=== PATIENT | male | born 1960 | race Caucasian/White ===

== ENCOUNTER 2017-05-25 22:37 | Inpatient (IN) | payer MEDICAID ==
[2017-05-25 23:53] LABS: % BASOPHILS 0.3 % (0.0-2.0); % EOSINOPHILS 1.9 % (0.0-5.0); % LYMPHOCYTES 27.6 % (20.0-50.0); % MONOCYTES 8.1 % (2.0-10.0); % NEUTROPHILS 62.1 % (40.0-80.0); HEMATOCRIT 31.8 % (41.0-60); HEMOGLOBIN 10.3 gm/dL (12-16); MEAN CELL VOLUME 76.1 fl (80-99); MEAN CORPUSCULAR HEMOGLOBIN 24.7 pg (26.0-30.0); MEAN CORPUSCULAR HGB CONC 32.5 pg (28.0-36.0); MEAN PLATELET VOLUME 8.4 fl; NEUTROPHILE ABSOLUTE 4.3 Th/cmm (1.8-8.0); PLATELET COUNT 305 Th/cmm (150-400); RED BLOOD COUNT 4.18 Mil/cmm (4.30-5.70); RED CELL DISTRIBUTION WIDTH 15.7 % (11.5-20.0); WHITE BLOOD COUNT 6.9 Th/cmm (4.8-10.8)
[2017-05-26 00:03] LABS: ALB/GLOB RATIO 1.1 (1.0-1.8); ALKALINE PHOSPHATASE 79 U/L (34-104); ANION GAP 7.4 (7.0-16.0); BILIRUBIN,TOTAL 0.2 mg/dL (0.3-1.0); BUN - UREA NITROGEN 17 mg/dL (7-25); CALCIUM SERUM 8.7 mg/dL (8.6-10.3); CARBON DIOXIDE 27.4 mEq/L (21.0-31.0); CHLORIDE 98 mEq/L (98-107); CREATININE - SERUM 0.5 mg/dL (0.7-1.3); GLUCOSE 108 mg/dL (70-105); MAGNESIUM 1.7 mg/dL (1.9-2.7); POTASSIUM SERUM 3.8 mEq/L (3.5-5.1); SGOT 22 U/L (13-39); SGPT/ALT 20 U/L (7-52); SODIUM SERUM 129 mEq/L (136-145)
[2017-05-26] MEDS ORDERED: Sodium Chloride 0.9% 1,000 ML IV SCH ×2 (00:15→02:07)
--- NOTE | 2017-05-26 00:35 | ED Physician Chart ---
ED Chief Complaint/HPI - Patient Information Date Seen:: 05/26/17 Time Seen:: 00:22 Chief Complaint:: sob Allergies:: Allergies Allergy/AdvReac Type Severity Reaction Status Date / Time No Known Allergies Allergy Verified 05/25/17 22:51 Vitals:: Vital Signs - 8 hr 05/25/17 22:40 Temp 98.1 F HR 92 RR 18 BP 107/66 O2 Sat % 99 Family Medical History - Family Member Mother History Unknown: Yes Ethnicity: Non- ED Labs/Radiology/EKG Results - Lab Results Results: Laboratory Tests 05/25/17 05/25/17 23:35 23:35 WBC 6.9 RBC 4.18 L Hgb 10.3 L Hct 31.8 L MCV 76.1 L MCH 24.7 L MCHC Differential 32.5 RDW 15.7 Plt Count 305 MPV 8.4 Neutrophils % 62.1 Lymphocytes % 27.6 Monocytes % 8.1 Eosinophils % 1.9 Basophils % 0.3 Sodium 129 L Potassium 3.8 Chloride 98 Carbon Dioxide 27.4 Anion Gap 7.4 BUN 17 Creatinine 0.5 L Est GFR ( Amer) > 60.0 Est GFR (Non-Af Amer) > 60.0 BUN/Creatinine Ratio 34.0 Glucose 108 H Calcium 8.7 Magnesium 1.7 L Total Bilirubin 0.2 L AST 22 ALT 20 Alkaline Phosphatase 79 Total Protein 6.7 Albumin 3.5 L Globulin 3.2 Albumin/Globulin Ratio 1.1 ED Septic Shock - <6hrs of presentation: Vital Signs: Vital Signs - 8 hr 05/25/17 22:40 Temp 98.1 F HR 92 RR 18 BP 107/66 O2 Sat % 99
--- NOTE | 2017-05-26 05:03 | ER Physician Documentation ---
DATE OF SERVICE: A 56-year-old male patient came from [facility]. The patient is mentally retarded and his G-tube was pulled out or came out accidentally. It was an 18-Maori G-tube. Hence, the patient was referred here to our Emergency Room for placement of the G-tube, but since the tube was pulled out, it was difficult to pull the G-tube in. There is no hole that could be seen. The nurse witnessed it and hence the patient needs to be admitted in the hospital. HISTORY OF PRESENT ILLNESS: Once again, the patient is mentally retarded. He is DNR. He has selective treatment. He has a G-tube. He is mentally retarded, mentally challenged. He has hypothyroidism, diaphragmatic hernia, GERD, dysphagia, mental retardation, anemia, epilepsy, diabetes mellitus. All these conditions are there. G-tube came out, hence he is admitted. No other heart problems or lung problems. He has mental retardation, mentally challenged. He just looks and gazes. He does not talk, he does not answer. History of present illness and other medical conditions could not be assessed because he does not talk. He came from this place. PAST MEDICAL HISTORY: Essentially same as mentioned above. PERSONAL HISTORY: Benign and negative except for the ones mentioned above. PHYSICAL EXAMINATION: GENERAL: The patient is gazing at me and he does not speak anything. He has no apparent complaints. He has NG tube area that is covered up with a gauze. There is no Ruff catheter. He has a diaper in place. HEENT: No meningeal signs are seen. CHEST: Clear. No rales, rhonchi, or bronchial breathing. No evidence of any decreased air entry at the lungs. HEART: Heart sounds appear to be normal. PMI is not seen or felt. S1 and S2 are normal. Fourth heart sound is heard. ABDOMEN: Soft, benign, and negative. EXTREMITIES: Contractures are seen. The patient could not walk. He is in the bedridden status. ASSESSMENT AND PLAN: 1. In conclusion, the reason why the patient came is his 18-Maori G-tube was pulled out accidentally. 2. The patient is mentally challenged, mentally retarded. The patient is a DNR status with selective treatment. 3. Hypothyroidism, diaphragmatic hernia, gastroesophageal reflux disease, dysphagia, mental retardation, anemia, epilepsy, diabetes mellitus. The patient will be admitted. ____ his admitting doctor is Dr. Nelson who advised that the patient should be sent to the psych or whichever unit he has given the order, will be sent over there. Pain scale is 0-10 out of 10. JOB# [id number]
[2017-05-26 05:50] VITALS: BP 117/70
--- NOTE | 2017-05-26 08:58 | History and Physical ---
History of Present Illness - HPI Chief Complaint: G-tube was pulled out HPI: This is a patient that I follow at a SNF, I received a call that patient has pulled off his G-tube, order to transferred patient to ER was given. Vital Signs: Last Vital Signs Temp 98.0 F 05/26/17 02:44 Pulse 90 05/26/17 02:44 Resp 17 05/26/17 03:00 BP 117/70 05/26/17 05:50 Pulse Ox 100 05/26/17 02:44 Past Medical History Cardiovascular: Report: No Pertinent Hx Pulmonary: Report: No Pertinent Hx RN SCHOOL: Report: Other (Mentally retarded, epilepsy) GI: Report: GERD, Other (Dysphagia, PEG use) Psych: Report: Other (Mentally retarded) Musculoskeletal: Report: Muscle Atrophy, Stiffness, Other (Non ambulatory) Rheumatologic: Report: No pertinent Hx Infectious Disease: Report: No Pertinent Hx Renal/: Report: No Pertinent Hx Endocrine: Report: Diabetes, Hyperthyroidism (PEG placement), Hypothyroidism Family Medical History - Family Member Mother History Unknown: Yes Ethnicity: Non- Social History Smoke: No Alcohol: None Drugs: None Lives: Residential Domestic Violence: Negative - Medications Home Medications: Home Medication Medication Instructions Recorded Type Acetaminophen [Tylenol] 650 mg GT Q4HR PRN 05/25/17 History Bisacodyl [Dulcolax 10 Mg Supp] 10 mg RC DAILY PRN 05/25/17 History Levetiracetam [Keppra] 500 mg GT BID 05/25/17 History Levothyroxine [Synthroid] 0.125 mg GT QDAC 05/25/17 History Omeprazole 20 mg GT QDAC 05/25/17 History Zonisamide [Zonegran] 100 mg GT HS 05/25/17 History - Allergies Allergies/Adverse Reactions: Allergies Allergy/AdvReac Type Severity Reaction Status Date / Time No Known Allergies Allergy Verified 05/25/17 22:51 Review of Systems - Review of Systems Constitutional: Report: No Significant Eyes: Report: No Significant ENT: Report: No Significant Respiratory: Report: No Significant Cardiovascular: Report: No Significant Gastrointestinal: Report: Other (Dysphagia) Genitourinary: Report: No Significant Musculoskeletal: Report: Other (Non ambulatory) Neurological: Report: Confusion, Seizures, Other (Mentally retarded) Physical Exam - Physical Exam HEENT: Report: Ears Nose Throat within normal limits Neck: Report: Within normal limits Cardiovascular Systems: Report: Regular, Rate and Rhythm Respiratory: Report: Breath Sounds are within normal limits Abdomen: Report: Non-tender to palpation, PEG site is clean Back: Report: Inspection of back is within normal limits. Extremities: Report: Extremities are contracted Skin: Report: Color of skin is within normal limits Neuro/Psych: Report: Disoriented to name time or place (Non verbal) - Assessment Assessment: Patient is awake, alert, calm in no acute distress. Dx: PEG pulled out, Dysphagia, DM, Hypothyroidism, Mentally retarded, Seizure, Chronic anemia - Plan Plan: Consult with GI requested to replace PEG. Continue with SNF meds.
[2017-05-26 17:52] LABS: URINE BILIRUBIN NEGATIVE (NEGATIVE); URINE BLOOD NEGATIVE (NEGATIVE); URINE GLUCOSE (UA) NEGATIVE (NEGATIVE); URINE KETONE NEGATIVE (NEGATIVE); URINE PH 6.5 (4.6 - 8.0); URINE PROTEIN NEGATIVE (NEGATIVE); URINE UROBILINOGEN 0.2 E.U./dL (0.2 - 1.0)
[2017-05-26 18:01] LABS: URINE COLOR YELLOW
[2017-05-26 18:02] LABS: URINE BACTERIA NONE SEEN /hpf (NONE SEEN); URINE EPITHELIAL CELLS NONE SEEN /lpf (FEW); URINE RBC NONE SEEN /hpf (0-5); URINE WBC NONE SEEN /hpf (0-5)
--- NOTE | 2017-05-26 18:11 | Consultation ---
DATE OF CONSULTATION: 05/26/2017 REASON FOR CONSULTATION: Malfunctioning G-tube and dysphagia. HISTORY OF PRESENT ILLNESS: This consult was obtained through the courtesy of Dr. Nelson for this 56-year-old with history of mental disability, admitted to the hospital for malfunction of G-tube. Apparently, the G-tube had been pulled out, and now hole is already closed. GI consult was called in for further evaluation. The patient is responsive, but noncommunicating, nonverbal. PAST MEDICAL HISTORY: Mental disability and dysphagia, hypothyroidism, GERD, anemia, diabetes, and seizure. PAST SURGICAL HISTORY: Not known. SOCIAL HISTORY: Nonsmoker, nonalcoholic, non-IV drug abuser. FAMILY HISTORY: Unobtainable and noncontributory. ALLERGIES: No known drug allergies. MEDICATIONS: The patient is on Tylenol, Dulcolax, Keppra, Synthroid, zonisamide, and Protonix. REVIEW OF SYSTEMS: Unobtainable. PHYSICAL EXAMINATION: GENERAL: The patient is awake, responsive, nonverbal, noncommunicating. VITAL SIGNS: Blood pressure is 117/70, heart rate 90, respiratory rate 17, and temperature is 98.0. HEAD AND NECK: Pupils are reactive to light. Extraocular muscles could not be tested. Oral cavity, no lesion. NECK: Supple, no jugular venous distention, no carotid bruit or lymph node. CHEST: Good respiratory movements. LUNGS: Clear to auscultation. CARDIOVASCULAR: Regular rate and rhythm. No murmur or gallop. ABDOMEN: Soft. Positive bowel sounds. Site of G-tube is so almost closed. EXTREMITIES: Lower extremities, no edema. CENTRAL NERVOUS SYSTEM: The patient is moving 4 extremities. Otherwise, unable to evaluate. LABORATORY DATA: H and H are 10.3 and 31.8, slightly low MCV of 76.1. Chemistry showed bilirubin of 0.2, magnesium 1.7. Albumin of 3.5. Sodium 129. IMPRESSION: A 56-year-old with dysphagia, now with malfunctioning G-tube. ASSESSMENT AND PLAN: 1. Malfunctioning G-tube. The patient will need to have a new one, will get a consent and will do it tomorrow in the morning, since hole is already closed. 2. Dysphagia, so we will continue with IV fluids and then PEG in the morning and then further recommendations to follow. Other medical problems such as hypothyroidism, seizure disorder, mental disability, etc., as per Dr. Nelson. Thank you, Dr. Nelson, for allowing me to participate in the care of the patient. If you have any further questions, please let me know. JOB# [id number] [email or web address]
[2017-05-26] MEDS: D5-0.9%NS 1,000 ML IV SCH (20:09)
[2017-05-27 06:12] LABS: % BASOPHILS 0.8 % (0.0-2.0); % EOSINOPHILS 1.5 % (0.0-5.0); % LYMPHOCYTES 29.2 % (20.0-50.0); % MONOCYTES 9.7 % (2.0-10.0); % NEUTROPHILS 58.8 % (40.0-80.0); HEMATOCRIT 34.3 % (41.0-60); MEAN CELL VOLUME 77.1 fl (80-99); MEAN CORPUSCULAR HEMOGLOBIN 24.7 pg (26.0-30.0); MEAN CORPUSCULAR HGB CONC 32.1 pg (28.0-36.0); MEAN PLATELET VOLUME 8.7 fl; PLATELET COUNT 296 Th/cmm (150-400); RED BLOOD COUNT 4.44 Mil/cmm (4.30-5.70); RED CELL DISTRIBUTION WIDTH 15.8 % (11.5-20.0)
[2017-05-27 06:13] LABS: WHITE BLOOD COUNT 5.1 Th/cmm (4.8-10.8)
[2017-05-27 06:21] LABS: INR 1.02 (0.5-1.4); PROTHROMBIN TIME (TEST) 10.6 SECONDS (9.5-11.5)
[2017-05-27 06:32] LABS: ALB/GLOB RATIO 1.1 (1.0-1.8); ALKALINE PHOSPHATASE 90 U/L (34-104); ANION GAP 11.1 (7.0-16.0); BILIRUBIN,TOTAL 0.5 mg/dL (0.3-1.0); BUN - UREA NITROGEN 10 mg/dL (7-25); CALCIUM SERUM 9.2 mg/dL (8.6-10.3); CARBON DIOXIDE 24.6 mEq/L (21.0-31.0); CHLORIDE 98 mEq/L (98-107); CREATININE - SERUM 0.5 mg/dL (0.7-1.3); GLUCOSE 81 mg/dL (70-105); POTASSIUM SERUM 3.7 mEq/L (3.5-5.1); SGOT 21 U/L (13-39); SGPT/ALT 16 U/L (7-52); SODIUM SERUM 130 mEq/L (136-145)
[2017-05-27] MEDS: Levothyroxine 0.125 Mg Tab GT SCH (07:48)
--- NOTE | 2017-05-27 08:56 | Diagnostic Imaging Report ---
Portable chest x-ray HISTORY: Cough, preoperative The heart size is normal. No acute focal pulmonary processes. Old left rib fractures are seen. IMPRESSION: No acute abnormalities
[2017-05-27] MEDS: Levetiracetam 500 mg/5mL 5mL UDC GT SCH ×2 (08:57→17:35)
--- NOTE | 2017-05-27 09:13 | General Progress Note ---
Subjective - Review of Systems Service Date: 05/27/17 Subjective: Patient non verbal Objective - Results Result Diagrams: 05/27/17 05:20 05/27/17 05:20 Recent Labs: Laboratory Last Values WBC 5.1 Th/cmm (4.8-10.8) D 05/27/17 05:20 RBC 4.44 Mil/cmm (4.30-5.70) 05/27/17 05:20 Hgb 11.0 gm/dL (12-16) L 05/27/17 05:20 Hct 34.3 % (41.0-60) L 05/27/17 05:20 MCV 77.1 fl (80-99) L 05/27/17 05:20 MCH 24.7 pg (26.0-30.0) L 05/27/17 05:20 MCHC Differential 32.1 pg (28.0-36.0) 05/27/17 05:20 RDW 15.8 % (11.5-20.0) 05/27/17 05:20 Plt Count 296 Th/cmm (150-400) 05/27/17 05:20 MPV 8.7 fl 05/27/17 05:20 Neutrophils % 58.8 % (40.0-80.0) 05/27/17 05:20 Lymphocytes % 29.2 % (20.0-50.0) 05/27/17 05:20 Monocytes % 9.7 % (2.0-10.0) 05/27/17 05:20 Eosinophils % 1.5 % (0.0-5.0) 05/27/17 05:20 Basophils % 0.8 % (0.0-2.0) 05/27/17 05:20 PT 10.6 SECONDS (9.5-11.5) 05/27/17 05:20 INR 1.02 (0.5-1.4) 05/27/17 05:20 Sodium 130 mEq/L (136-145) L 05/27/17 05:20 Potassium 3.7 mEq/L (3.5-5.1) 05/27/17 05:20 Chloride 98 mEq/L (98-107) 05/27/17 05:20 Carbon Dioxide 24.6 mEq/L (21.0-31.0) 05/27/17 05:20 Anion Gap 11.1 (7.0-16.0) 05/27/17 05:20 BUN 10 mg/dL (7-25) 05/27/17 05:20 Creatinine 0.5 mg/dL (0.7-1.3) L 05/27/17 05:20 Est GFR ( Amer) > 60.0 ml/min (>90) 05/27/17 05:20 Est GFR (Non-Af Amer) > 60.0 ml/min 05/27/17 05:20 BUN/Creatinine Ratio 20.0 05/27/17 05:20 Glucose 81 mg/dL (70-105) 05/27/17 05:20 Hemoglobin A1c % 5.6 % (4.0-6.0) 05/25/17 23:35 Calcium 9.2 mg/dL (8.6-10.3) 05/27/17 05:20 Magnesium 1.7 mg/dL (1.9-2.7) L 05/25/17 23:35 Total Bilirubin 0.5 mg/dL (0.3-1.0) 05/27/17 05:20 AST 21 U/L (13-39) 05/27/17 05:20 ALT 16 U/L (7-52) 05/27/17 05:20 Alkaline Phosphatase 90 U/L (34-104) 05/27/17 05:20 Total Protein 7.1 gm/dL (6.0-8.3) 05/27/17 05:20 Albumin 3.7 gm/dL (4.2-5.5) L 05/27/17 05:20 Globulin 3.4 gm/dL 05/27/17 05:20 Albumin/Globulin Ratio 1.1 (1.0-1.8) 05/27/17 05:20 TSH 4.78 uIU/ml (0.34-5.60) 05/27/17 05:20 Urine Source CLEAN C 05/26/17 17:40 Urine Color YELLOW 05/26/17 17:40 Urine Clarity CLEAR (CLEAR) 05/26/17 17:40 Urine pH 6.5 (4.6 - 8.0) 05/26/17 17:40 Ur Specific [place] 1.010 (1.005-1.030) 05/26/17 17:40 Urine Protein NEGATIVE mg/dL (NEGATIVE) 05/26/17 17:40 Urine Glucose (UA) NEGATIVE mg/dL (NEGATIVE) 05/26/17 17:40 Urine Ketones NEGATIVE mg/dL (NEGATIVE) 05/26/17 17:40 Urine Blood NEGATIVE (NEGATIVE) 05/26/17 17:40 Urine Nitrate NEGATIVE (NEGATIVE) 05/26/17 17:40 Urine Bilirubin NEGATIVE (NEGATIVE) 05/26/17 17:40 Urine Urobilinogen 0.2 E.U./dL (0.2 - 1.0) 05/26/17 17:40 Ur Leukocyte Esterase NEGATIVE (NEGATIVE) 05/26/17 17:40 Urine RBC NONE SEEN /hpf (0-5) 05/26/17 17:40 Urine WBC NONE SEEN /hpf (0-5) 05/26/17 17:40 Ur Epithelial Cells NONE SEEN /lpf (FEW) 05/26/17 17:40 Urine Bacteria NONE SEEN /hpf (NONE SEEN) 05/26/17 17:40 - Physical Exam Vitals and I&O: Vital Signs Temp 98.6 F 05/27/17 04:00 Pulse 77 05/27/17 04:00 Resp 17 05/27/17 04:00 BP 104/63 05/27/17 04:00 Pulse Ox 98 05/27/17 04:00 Intake & Output 05/26/17 05/27/17 05/27/17 18:59 06:59 18:59 Intake Total 0 0 Output Total 1 Balance -1 0 Weight (lbs) 52.617 kg 53.977 kg Intake: Oral 0 0 Output: Stool 0 Urine/Stool Mix 1 Emesis 0 Other: # Voids 4 3 # Bowel Movements 0 0 Active Medications: Current Medications Acetaminophen (Tylenol) 650 mg GT Q4HR PRN PRN Reason: Pain or Fever >101 Stop: 07/25/17 09:01 Bisacodyl (Dulcolax 10 Mg Supp) 10 mg RC DAILY PRN PRN Reason: Constipation Stop: 07/25/17 09:01 Dextrose/Sodium Chloride (D5-0.9%Ns) 1,000 mls @ 100 mls/hr IV .Q10H LÁZARO Stop: 07/25/17 17:14 Last Admin: 05/26/17 20:09 Dose: 100 mls/hr Levetiracetam (Keppra) 500 mg GT BID LÁZARO Stop: 07/25/17 16:59 Last Admin: 05/27/17 08:57 Dose: Not Given Levothyroxine Sodium (Synthroid) 0.125 mg GT QDAC LÁZARO Stop: 07/26/17 07:29 Last Admin: 05/27/17 07:48 Dose: Not Given Zonisamide (Zonegran) 100 mg GT HS LÁZARO Stop: 07/25/17 20:59 Last Admin: 05/26/17 21:00 Dose: Not Given General: Alert, No acute distress, Other (Non verbal) HEENT: Atraumatic Neck: Supple Cardiovascular: Regular rate, Normal S2 Abdomen: Bowel sounds, Catheter Extremities: Other (No edema) Neurological: Other (Non ambulatory) Skin: Other (Warm and dry) Assessment/Plan - Assessment Assessment: Patient is awake, alert, calm in no acute distress. Dx: PEG pulled out, Dysphagia, DM, Hypothyroidism, Mentally retarded, Seizure, Chronic anemia - Plan Plan: PEG will be replaced today Continue with SNF meds.
[2017-05-27] MEDS ORDERED: Lactated Ringer 1,000 ML IV SCH (14:30)
--- NOTE | 2017-05-27 15:36 | Operative Report ---
DATE OF SURGERY: 05/27/2017 PROCEDURES: 1. Esophagogastroduodenoscopy with balloon dilation to 15 mm. 2. Esophagogastroduodenoscopy with percutaneous endoscopic gastrostomy tube placement that is PEG. INDICATION FOR PROCEDURE: Dysphagia. The patient had a G-tube, which was pulled out. This was done to insert a new one. CONSENT: Informed consent was obtained from the patient's mother after planning benefits and risks including infection, bleeding, perforation, and . ANESTHESIA USED: Propofol given by anesthesiologist. PREOPERATIVE DIAGNOSIS: Dysphagia. POSTOPERATIVE DIAGNOSES: 1. Dysphagia status post G-tube placement. 2. Esophageal stricture status post dilation to 15-mm balloon. 3. Severe esophagitis consistent with Rosales esophagus. DESCRIPTION OF PROCEDURE: The patient was placed in semi left lateral position. Upper Olympus endoscope was introduced through the mouth and advanced to the esophagus, which was intubated under direct visualization. At about 30 cm, there was a esophageal stricture and could not go with the scope through it. So we dilated with balloon to 12 mm, then 13-1/2, then we could go in with the scope to the stomach, then was withdrawn again to the GE junction, which was dilated to 15 mm. Scope was then advanced to the stomach. Gastric mucosa showed gastritis. Scope was retroflexed to examine the cardia and fundus and did not show any other abnormality. Scope was then straightened and advanced to the duodenum where the bulb and second part were examined and they were both normal. Scope was withdrawn to the esophagus and wire was introduced into the stomach. Through the hole, we could align it to the stomach. Then, the wire was captured with the snare. Scope was then withdrawn with the snare holding the wire. A size-20 G-tube was connected to the wire, then it was pulled out of the patient's abdomen using standard pull technique. It could not come out of the stomach, so scope was then inserted again and we could see it hung in esophagus at the site of dilation, so it was ____ firmly and it came through. The scope was then withdrawn. G-tube was secured in place. The patient tolerated the procedure well. There were no immediate postoperative complications. RECOMMENDATIONS: 1. May use the tube for medications immediately. 2. May use feeding tube for feeding immediately. 3. Protonix 40 mg IV push b.i.d. 4. Further recommendations to follow depending on the clinical response. Thank you, Dr. Hussein for allowing me to participate in the care of the patient. If you have any further questions, please let me know. JOB# [id number]
[2017-05-28] MEDS: D5-0.9%NS 1,000 ML IV SCH (04:45)
[2017-05-28 05:02] LABS: % BASOPHILS 0.6 % (0.0-2.0); % EOSINOPHILS 0.5 % (0.0-5.0); % LYMPHOCYTES 15.2 % (20.0-50.0); % MONOCYTES 4.4 % (2.0-10.0); % NEUTROPHILS 79.3 % (40.0-80.0); HEMATOCRIT 32.8 % (41.0-60); HEMOGLOBIN 10.7 gm/dL (12-16); MEAN CELL VOLUME 76.8 fl (80-99); MEAN CORPUSCULAR HEMOGLOBIN 25.1 pg (26.0-30.0); MEAN CORPUSCULAR HGB CONC 32.7 pg (28.0-36.0); MEAN PLATELET VOLUME 8.4 fl; NEUTROPHILE ABSOLUTE 7.6 Th/cmm (1.8-8.0); PLATELET COUNT 304 Th/cmm (150-400); RED BLOOD COUNT 4.27 Mil/cmm (4.30-5.70); RED CELL DISTRIBUTION WIDTH 15.8 % (11.5-20.0)
[2017-05-28 05:07] LABS: WHITE BLOOD COUNT 9.5 Th/cmm (4.8-10.8)
[2017-05-28 05:19] LABS: ALB/GLOB RATIO 1.1 (1.0-1.8); ALKALINE PHOSPHATASE 81 U/L (34-104); ANION GAP 9.1 (7.0-16.0); BILIRUBIN,TOTAL 0.3 mg/dL (0.3-1.0); BUN - UREA NITROGEN 8 mg/dL (7-25); BUN/CREATININE RATIO 13.3; CALCIUM SERUM 8.5 mg/dL (8.6-10.3); CARBON DIOXIDE 23.4 mEq/L (21.0-31.0); CHLORIDE 101 mEq/L (98-107); CREATININE - SERUM 0.6 mg/dL (0.7-1.3); GLUCOSE 114 mg/dL (70-105); POTASSIUM SERUM 3.5 mEq/L (3.5-5.1); SGOT 18 U/L (13-39); SGPT/ALT 15 U/L (7-52); SODIUM SERUM 130 mEq/L (136-145)
[2017-05-28] MEDS: Levothyroxine 0.125 Mg Tab GT SCH (07:31)
--- NOTE | 2017-05-28 08:42 | Discharge Summary ---
General Discharge Summary - Discharge Summary Date of Admission: 05/25/17 Admitting Diagnosis: PEG Pulled out, Dysphagia, Hypothyroidism, DM, MR, Seizure , Chronic anemia Discharge Date: 05/28/17 Discharge Diagnosis: Peg pulled out, Dysphagia, Hypothyroidism, DM, MR, Seizure , Chronic anemia. Laboratory Findings: Laboratory Tests 05/26/17 05/27/17 05/27/17 17:40 05:20 05:20 WBC 5.1 D RBC 4.44 Hgb 11.0 L Hct 34.3 L MCV 77.1 L MCH 24.7 L MCHC Differential 32.1 RDW 15.8 Plt Count 296 MPV 8.7 Neutrophils % 58.8 Lymphocytes % 29.2 Monocytes % 9.7 Eosinophils % 1.5 Basophils % 0.8 PT INR Sodium 130 L Potassium 3.7 Chloride 98 Carbon Dioxide 24.6 Anion Gap 11.1 BUN 10 Creatinine 0.5 L Est GFR ( Amer) > 60.0 Est GFR (Non-Af Amer) > 60.0 BUN/Creatinine Ratio 20.0 Glucose 81 POC Glucose Calcium 9.2 Total Bilirubin 0.5 AST 21 ALT 16 Alkaline Phosphatase 90 Total Protein 7.1 Albumin 3.7 L Globulin 3.4 Albumin/Globulin Ratio 1.1 TSH Urine Source CLEAN C Urine Color YELLOW Urine Clarity CLEAR Urine pH 6.5 Ur Specific [place] 1.010 Urine Protein NEGATIVE Urine Glucose (UA) NEGATIVE Urine Ketones NEGATIVE Urine Blood NEGATIVE Urine Nitrate NEGATIVE Urine Bilirubin NEGATIVE Urine Urobilinogen 0.2 Ur Leukocyte Esterase NEGATIVE Urine RBC NONE SEEN Urine WBC NONE SEEN Ur Epithelial Cells NONE SEEN Urine Bacteria NONE SEEN 05/27/17 05/27/17 05/27/17 05:20 05:20 13:34 WBC RBC Hgb Hct MCV MCH MCHC Differential RDW Plt Count MPV Neutrophils % Lymphocytes % Monocytes % Eosinophils % Basophils % PT 10.6 INR 1.02 Sodium Potassium Chloride Carbon Dioxide Anion Gap BUN Creatinine Est GFR ( Amer) Est GFR (Non-Af Amer) BUN/Creatinine Ratio Glucose POC Glucose 109 H Calcium Total Bilirubin AST ALT Alkaline Phosphatase Total Protein Albumin Globulin Albumin/Globulin Ratio TSH 4.78 Urine Source Urine Color Urine Clarity Urine pH Ur Specific [place] Urine Protein Urine Glucose (UA) Urine Ketones Urine Blood Urine Nitrate Urine Bilirubin Urine Urobilinogen Ur Leukocyte Esterase Urine RBC Urine WBC Ur Epithelial Cells Urine Bacteria 05/28/17 05/28/17 04:34 04:34 WBC 9.5 D RBC 4.27 L Hgb 10.7 L Hct 32.8 L MCV 76.8 L MCH 25.1 L MCHC Differential 32.7 RDW 15.8 Plt Count 304 MPV 8.4 Neutrophils % 79.3 Lymphocytes % 15.2 L Monocytes % 4.4 Eosinophils % 0.5 Basophils % 0.6 PT INR Sodium 130 L Potassium 3.5 Chloride 101 Carbon Dioxide 23.4 Anion Gap 9.1 BUN 8 Creatinine 0.6 L Est GFR ( Amer) > 60.0 Est GFR (Non-Af Amer) > 60.0 BUN/Creatinine Ratio 13.3 Glucose 114 H POC Glucose Calcium 8.5 L Total Bilirubin 0.3 AST 18 ALT 15 Alkaline Phosphatase 81 Total Protein 6.6 Albumin 3.5 L Globulin 3.1 Albumin/Globulin Ratio 1.1 TSH Urine Source Urine Color Urine Clarity Urine pH Ur Specific [place] Urine Protein Urine Glucose (UA) Urine Ketones Urine Blood Urine Nitrate Urine Bilirubin Urine Urobilinogen Ur Leukocyte Esterase Urine RBC Urine WBC Ur Epithelial Cells Urine Bacteria Hospital Course: Patient was continue with SNF meds, G-tube replaced. Treatment: Patient was started with IV NS, later changed to D5-NS, continue with SNF meds, and G-tube was replaced. Condition at Discharge: Stable Disposition: Discharge/Transfered to [facility] Home Medications: Home Medication Medication Instructions Recorded Type Acetaminophen [Tylenol] 650 mg GT Q4HR PRN 05/25/17 History Bisacodyl [Dulcolax 10 Mg Supp] 10 mg RC DAILY PRN 05/25/17 History Levetiracetam [Keppra] 500 mg GT BID 05/25/17 History Levothyroxine [Synthroid] 0.125 mg GT QDAC 05/25/17 History Omeprazole 20 mg GT QDAC 05/25/17 History Zonisamide [Zonegran] 100 mg GT HS 05/25/17 History Inpatient Medications: Current Medications Acetaminophen (Tylenol) 650 mg GT Q4HR PRN PRN Reason: Pain or Fever >101 Stop: 07/25/17 09:01 Bisacodyl (Dulcolax 10 Mg Supp) 10 mg RC DAILY PRN PRN Reason: Constipation Stop: 07/25/17 09:01 Dextrose/Sodium Chloride (D5-0.9%Ns) 1,000 mls @ 100 mls/hr IV .Q10H LÁZARO Stop: 07/25/17 17:14 Last Admin: 05/28/17 04:45 Dose: 100 mls/hr Levetiracetam (Keppra) 500 mg GT BID LÁZARO Stop: 07/25/17 16:59 Last Admin: 05/27/17 17:35 Dose: 500 mg Levothyroxine Sodium (Synthroid) 0.125 mg GT QDAC LÁZARO Stop: 07/26/17 07:29 Last Admin: 05/28/17 07:31 Dose: 0.125 mg Ondansetron HCl (Zofran) 4 mg IV UD PRN PRN Reason: Nausea / Vomiting Stop: 07/26/17 14:21 Pantoprazole Sodium (Protonix) 40 mg IVP BID LÁZARO Stop: 07/26/17 16:59 Last Admin: 05/27/17 17:35 Dose: 40 mg Zonisamide (Zonegran) 100 mg GT HS LÁZARO Stop: 07/25/17 20:59 Last Admin: 05/27/17 20:42 Dose: 100 mg Activity: Bed Rest Discharge Diet: Tube Feeding Consults and Follow-Up: Iván Nelson [Primary Care Provider] - Consulting Speciality: Other (PCP)
[2017-05-28] MEDS: Levetiracetam 500 mg/5mL 5mL UDC GT SCH (08:57)
== END 2017-05-28 13:20 | disposition home or self-care (01) | DRG 252 ==
LOC: ER 22:37 → MSI 05-26 02:15
PROVIDERS: ADMIT General Practice; ATTEND General Practice
PROC: 0DH63UZ Insertion of Feeding Device into Stomach, Percutaneous Approach (ICD-10-PCS; principal; 2017-05-27)
PROC: 0D758ZZ Dilation of Esophagus, Via Natural or Artificial Opening Endoscopic (ICD-10-PCS; 2017-05-27)
DX: K94.23 Gastrostomy malfunction (principal); K22.2 Esophageal obstruction; R13.10 Dysphagia, unspecified; E11.9 Type 2 diabetes mellitus without complications; D64.9 Anemia, unspecified; K22.70 Barrett's esophagus without dysplasia; E03.9 Hypothyroidism, unspecified; K21.0 Gastro-esophageal reflux disease with esophagitis; K29.70 Gastritis, unspecified, without bleeding; F79 Unspecified intellectual disabilities; G40.909 Epilepsy, unspecified, not intractable, without status epilepticus; K44.9 Diaphragmatic hernia without obstruction or gangrene; Z66 Do not resuscitate; Y83.8 Other surgical procedures as the cause of abnormal reaction of the patient, or of later complication, without mention of misadventure at the time of the procedure; Y92.89 Other specified places as the place of occurrence of the external cause
CPT/HCPCS: 36415-UA; 71010-TC; 80053-TC; 81001-TC; 82948-90; 83036-90; 83735-TC; 84443-TC; 85025-TC; 85610-TC; 87086-90; 93005; C9113; J2704; J7030; J7042; Z7506; Z7610

== ENCOUNTER 2018-06-03 15:47 | Inpatient (IN) | payer MEDICAID ==
--- NOTE | 2018-06-03 16:24 | ED Physician Chart ---
ED Chief Complaint/HPI - Patient Information Date Seen:: 06/03/18 Time Seen:: 16:10 Chief Complaint:: replacement of G-tube History of Present Illness:: Patient was sent here for G-tube replacement. Allergies:: Allergies Allergy/AdvReac Type Severity Reaction Status Date / Time No Known Allergies Allergy Verified 05/25/17 22:51 Historian:: EMS, Medical Records Review:: Nurse's Note Reviewed ED Review of Systems - Review of Systems General/Constitutional: No fever, No chills, No weight loss, No weakness, No diaphoresis, No edema, No loss of appetite Skin: No skin lesions, No rash, No bruising Head: No headache, No light-headedness Eyes: No loss of vision, No pain, No diplopia ENT: No earache, No nasal drainage, No sore throat, No tinnitus Neck: No neck pain, No swelling, No thyromegaly, No stiffness, No mass noted Cardio Vascular: No chest pain, No palpitations, No PND, No orthopnea, No edema Pulmonary: No SOB, No cough, No sputum, No wheezing GI: No nausea, No vomiting, No diarrhea, No pain, No melena, No hematochezia, No constipation, No hematemesis G/U: No dysuria, No frequency, No hematuria Musculoskeletal: No bone or joint pain, No back pain, No muscle pain Endocrine: No polyuria, No polydipsia Psychiatric: Prior psych history, No depression, No anxiety, No suicidal ideation Hematopoietic: No bruising, No lymphadenopathy Allergic/Immuno: No urticaria, No angioedema Neurological: No syncope, No focal symptoms, No weakness, No paresthesia, No headache, No seizure, No dizziness, No confusion, No vertigo ED Past Medical History - Past Medical History Past Medical History: DM, PUD/GERD, Thyroid disorder, Arthritis, Other ( dysphagia; anemia; hypothyroidism; mental retardation; status post GI bleed; esophagitis; diaphragmatic hernia) Family History: Other (not available) Social History: Care Facility Surgical History: PEG/GTube Psychiatricy History: Schizophrenia Medication: Reviewed Family Medical History - Family Member Mother History Unknown: Yes Ethnicity: Non- ED Physical Exam - Physical Examination General/Constitutional: Awake, No distress Other Gen/Cons comments:: Chronically ill-appearing; and fractured; nonverbal Head: Atraumatic Eyes: Lids, conjuctiva normal, PERRL Skin: Nl inspection ENMT: External ears, nose nl, Nasal exam nl Neck: No nuchal rigidity Respiratory: Nl effort/Exclusion, Clear to Auscultation, No Wheeze/Rhonchi/Rales Cardio Vascular: RRR, No murmur, gallop, rubs GI: No tenderness/rebounding/guarding, No organomegaly, No hernia, Normal BS's : No CVA tenderness Other Extremities comments:: Contractured Neuro/Psych: No focal deficits ED Labs/Radiology/EKG Results - Lab Results Results: Abnormal Lab Results 06/03/18 06/03/18 06/03/18 16:36 16:36 16:36 WBC 7.1 RBC 5.00 Hgb 13.6 Hct 42.4 MCV 84.8 MCH 27.3 MCHC Differential 32.2 RDW 14.3 Plt Count 266 MPV 9.1 Add Manual Diff YES PT 10.6 INR 1.02 PTT (Actin FS) 21.0 L Sodium 131 L Potassium 4.4 Chloride 96 L Carbon Dioxide 26.7 Anion Gap 12.7 BUN 17 Creatinine 0.7 Est GFR ( Amer) > 60.0 Est GFR (Non-Af Amer) > 60.0 BUN/Creatinine Ratio 24.3 Glucose 95 Calcium 9.4 ED Assessment - Assessment General Assessment: G-tube is functional but the rubber appears old. There is no port to deflate a balloon and the G-tube does not come out with moderate traction. ED Septic Shock - . Is Septic Shock (SBP<90, OR Lactate>4 mmol\L) present?: No ED Reassessment (Disposition) - Reassessment Reassessment Condition:: Unchanged - Diagnosis Diagnosis:: G-tube replacement; schizophrenia; mental disability - Patient Disposition Admitted to:: Med/Surg Spoke to:: Iván Nelson Admitting Medical Physician:: Iván Nelson Condition at Disposition:: Stable, Unchanged
[2018-06-03 16:47] LABS: HEMATOCRIT 42.4 % (41.0-60); HEMOGLOBIN 13.6 gm/dL (12-16); MEAN CELL VOLUME 84.8 fl (80-99); MEAN CORPUSCULAR HEMOGLOBIN 27.3 pg (26.0-30.0); MEAN CORPUSCULAR HGB CONC 32.2 pg (28.0-36.0); MEAN PLATELET VOLUME 9.1 fl; PLATELET COUNT 266 Th/cmm (150-400); RED CELL DISTRIBUTION WIDTH 14.3 % (11.5-20.0); WHITE BLOOD COUNT 7.1 Th/cmm (4.8-10.8)
[2018-06-03 17:00] LABS: INR 1.02 (0.5-1.4); PROTHROMBIN TIME (TEST) 10.6 SECONDS (9.5-11.5)
[2018-06-03 17:02] LABS: ANION GAP 12.7 (7.0-16.0); BUN - UREA NITROGEN 17 mg/dL (7-25); CALCIUM SERUM 9.4 mg/dL (8.6-10.3); CARBON DIOXIDE 26.7 mEq/L (21.0-31.0); CHLORIDE 96 mEq/L (98-107); CREATININE - SERUM 0.7 mg/dL (0.7-1.3); GFR AFRICAN-AMERICAN > 60.0 ml/min (>90); GFR NON AFRICAN-AMERICAN > 60.0 ml/min; GLUCOSE 95 mg/dL (70-105); POTASSIUM SERUM 4.4 mEq/L (3.5-5.1); SODIUM SERUM 131 mEq/L (136-145)
[2018-06-03 17:42] LABS: BAND NEUTROPHILE 2 % (0-10); BASOPHIL 0 % (0-3); EOSINOPHIL 2 % (0-5); LYMPHOCYTE 19 % (20-50); MONOCYTE 8 % (2-10); NEUTROPHILS 69 % (40-80)
[2018-06-03 17:43] LABS: PLATELET ESTIMATE ADEQUATE (NORMAL); PLATELET MORPHOLOGY NORMAL (NORMAL)
[2018-06-03] MEDS ORDERED: Non-Formulary Item 1 EA (Levetiracetam [Keppra] 500 MG) GT SCH (23:45)
[2018-06-04] MEDS ORDERED: Levetiracetam 500 mg/5mL 5mL UDSyr *for ORAL USE ONLY GT SCH ×2 (00:30)
[2018-06-04 05:37] LABS: % BASOPHILS 1.1 % (0.0-2.0); % EOSINOPHILS 2.7 % (0.0-5.0); % LYMPHOCYTES 24.6 % (20.0-50.0); % MONOCYTES 8.6 % (2.0-10.0); BASOPHILE ABSOLUTE 0.1 Th/cumm (0-0.2); EOSINOPHILE ABSOLUTE 0.2 Th/cmm (0.1-0.4); HEMATOCRIT 41.7 % (41.0-60); HEMOGLOBIN 13.7 gm/dL (12-16); LYMPHOCYTE ABSOLUTE 1.6 Th/cmm (1.5-3.0); MEAN CELL VOLUME 84.9 fl (80-99); MEAN CORPUSCULAR HEMOGLOBIN 27.9 pg (26.0-30.0); MEAN CORPUSCULAR HGB CONC 32.8 pg (28.0-36.0); MEAN PLATELET VOLUME 8.5 fl; MONOCYTE ABSOLUTE 0.6 Th/cmm (0.3-1.0); NEUTROPHILE ABSOLUTE 3.9 Th/cmm (1.8-8.0); PLATELET COUNT 261 Th/cmm (150-400); RED BLOOD COUNT 4.91 Mil/cmm (4.30-5.70); RED CELL DISTRIBUTION WIDTH 14.1 % (11.5-20.0); WHITE BLOOD COUNT 6.4 Th/cmm (4.8-10.8)
[2018-06-04 06:04] LABS: ALB/GLOB RATIO 1.3 (1.0-1.8); ALBUMIN 3.9 gm/dL (4.2-5.5); ALKALINE PHOSPHATASE 72 U/L (34-104); BILIRUBIN,TOTAL 0.4 mg/dL (0.3-1.0); BUN - UREA NITROGEN 15 mg/dL (7-25); CALCIUM SERUM 9.3 mg/dL (8.6-10.3); CARBON DIOXIDE 24.8 mEq/L (21.0-31.0); CHLORIDE 98 mEq/L (98-107); CREATININE - SERUM 0.6 mg/dL (0.7-1.3); GFR AFRICAN-AMERICAN > 60.0 ml/min (>90); GFR NON AFRICAN-AMERICAN > 60.0 ml/min; GLUCOSE 82 mg/dL (70-105); POTASSIUM SERUM 3.8 mEq/L (3.5-5.1); SGOT 19 U/L (13-39); SGPT/ALT 13 U/L (7-52); SODIUM SERUM 134 mEq/L (136-145)
[2018-06-04] MEDS ORDERED: Levothyroxine 0.1 Mg Tab GT SCH (07:30)
--- NOTE | 2018-06-04 09:06 | History and Physical ---
History of Present Illness - HPI Chief Complaint: G-Tube malfunction HPI: This is a patient that I follow in a SNF, I receive a report that G-Tube malfunction, an order to send patient hospital to change G-tube Vital Signs: Last Vital Signs Temp 97.6 F 06/04/18 04:00 Pulse 70 06/04/18 04:00 Resp 19 06/04/18 04:00 BP 112/74 06/04/18 04:00 Pulse Ox 97 06/04/18 04:00 Past Medical History Cardiovascular: Report: No Pertinent Hx Pulmonary: Report: No Pertinent Hx RESIDENT INSPECTOR: Report: Dementia, Seizure GI: Report: Other (Dysphagia, G-tube in place.) Psych: Report: Schizophrenia, Other (Mentally challenged) Musculoskeletal: Report: Muscle Atrophy, Weakness, Stiffness, Other (Non ambulatory) Rheumatologic: Report: No pertinent Hx Infectious Disease: Report: No Pertinent Hx Renal/: Report: No Pertinent Hx Endocrine: Report: No Pertinent Hx, Hypothyroidism Dermatology: Report: No Pertinent Hx - Past Surgical History Past Surgical History: No pertinent Hx Family Medical History - Family Member Mother History Unknown: Yes Ethnicity: Non- Living Status: Still Living Social History Smoke: No Alcohol: None Drugs: None Lives: [facility] Domestic Violence: Negative - Medications Home Medications: Home Medication Medication Instructions Recorded Type Acetaminophen [Tylenol] 650 mg GT Q4HR PRN 05/25/17 History Bisacodyl [Dulcolax 10 Mg Supp] 10 mg RC DAILY PRN 05/25/17 History Levetiracetam [Keppra] 500 mg GT Q12H 05/25/17 History Levothyroxine [Synthroid] 0.1 mg GT QDAC 05/25/17 History Zonisamide [Zonegran] 100 mg GT HS 05/25/17 History Famotidine [Pepcid] 20 mg GT DAILY 06/03/18 History Ferrous Sulfate [Ferosul] 330 mg GT TID 06/03/18 History - Allergies Allergies/Adverse Reactions: Allergies Allergy/AdvReac Type Severity Reaction Status Date / Time No Known Allergies Allergy Verified 05/25/17 22:51 Review of Systems - Review of Systems Constitutional: Report: No Significant Eyes: Report: No Significant ENT: Report: No Significant Respiratory: Report: No Significant, Shortness of Breath Cardiovascular: Report: No Significant Gastrointestinal: Report: No Significant Genitourinary: Report: No Significant Musculoskeletal: Report: No Significant Skin: Report: No Significant Neurological: Report: Weakness Physical Exam - Physical Exam HEENT: Report: Ears Nose Throat within normal limits Neck: Report: Within normal limits Cardiovascular Systems: Report: Regular, Rate and Rhythm Respiratory: Report: Breath Sounds are within normal limits Abdomen: Report: Non-tender to palpation, PEG site is clean Back: Report: Inspection of back is within normal limits. Extremities: Report: Non-tender to palpation., Extremities are contracted Skin: Report: Color of skin is within normal limits, Warm, Dry Neuro/Psych: Report: Disoriented to name time or place, Other (Non Verbal.) - Lab Results All Lab Results last 24 hours: Laboratory Results - last 24 hr 06/03/18 06/03/18 06/03/18 16:36 16:36 16:36 WBC 7.1 RBC 5.00 Hgb 13.6 Hct 42.4 MCV 84.8 MCH 27.3 MCHC Differential 32.2 RDW 14.3 Plt Count 266 MPV 9.1 Add Manual Diff YES Neutrophils % Band Neutrophils % 2 Lymphocytes % Monocytes % Eosinophils % Basophils % Neutrophils (Manual) 69 Lymphocytes 19 L Monocytes 8 Eosinophils 2 Basophils 0 Platelet Estimate ADEQUATE Platelet Morphology NORMAL RBC Morph Micro Appear NORMAL PT 10.6 INR 1.02 PTT (Actin FS) 21.0 L Sodium 131 L Potassium 4.4 Chloride 96 L Carbon Dioxide 26.7 Anion Gap 12.7 BUN 17 Creatinine 0.7 Est GFR ( Amer) > 60.0 Est GFR (Non-Af Amer) > 60.0 BUN/Creatinine Ratio 24.3 Glucose 95 Calcium 9.4 Total Bilirubin AST ALT Alkaline Phosphatase Total Protein Albumin Globulin Albumin/Globulin Ratio 06/04/18 06/04/18 05:10 05:10 WBC 6.4 RBC 4.91 Hgb 13.7 Hct 41.7 MCV 84.9 MCH 27.9 MCHC Differential 32.8 RDW 14.1 Plt Count 261 MPV 8.5 Add Manual Diff Neutrophils % 63.0 Band Neutrophils % Lymphocytes % 24.6 Monocytes % 8.6 Eosinophils % 2.7 Basophils % 1.1 Neutrophils (Manual) Lymphocytes Monocytes Eosinophils Basophils Platelet Estimate Platelet Morphology RBC Morph Micro Appear PT INR PTT (Actin FS) Sodium 134 L Potassium 3.8 Chloride 98 Carbon Dioxide 24.8 Anion Gap 15.0 BUN 15 Creatinine 0.6 L Est GFR ( Amer) > 60.0 Est GFR (Non-Af Amer) > 60.0 BUN/Creatinine Ratio 25.0 Glucose 82 Calcium 9.3 Total Bilirubin 0.4 AST 19 ALT 13 Alkaline Phosphatase 72 Total Protein 7.0 Albumin 3.9 L Globulin 3.1 Albumin/Globulin Ratio 1.3 - Assessment Assessment: Current Active Problems Problem Status Onset GASTRIC FEEDING TUBE PLACEMENT Acute Patient is awake, alert, non verbal. Dx: G-tube malfunction, Dysphagia, DM, Hypothyroidism, Seizure disorder, MR - Plan Plan: Patient in IV d5/NS, continue with SNF meds, G-tube will be change today. If everything goes well patient will be discharge today after G-tube replacement.
[2018-06-04] MEDS ORDERED: D5-0.9%NS 1,000 ML IV SCH (10:00)
[2018-06-04] MEDS ORDERED: VTE Chemical Prophylaxis Screen/Admission MC PRN (10:19)
[2018-06-04] MEDS ORDERED: Diatrizoate Meglumine/Diatri 30 mL Sol PO ONE (12:45)
--- NOTE | 2018-06-04 13:16 | Diagnostic Imaging Report ---
Upper GI (Limited, KUB with Gastrografin through gastrostomy tube) HISTORY: Gastrostomy tube placement Water-soluble contrast was instilled through patient's gastrostomy tube. The exam demonstrates opacification of the gastric lumen with flow contrast into the proximal duodenum. Mild gastroesophageal reflux noted. No extravasation. IMPRESSION: 1. Confirmation of gastrostomy tube within the gastric lumen 2. Mild gastroesophageal reflux
--- NOTE | 2018-06-04 14:27 | Operative Report ---
DATE OF SURGERY: 06/04/2018 PROCEDURE REPORT PROCEDURE PERFORMED: G-tube replacement and alteration. DESCRIPTION OF PROCEDURE: While the patient was at the bedside at the [facility], visualization of a long old necrotic appearing G-tube was seen at the distal tip with G-tube feeding material clogged. Attempts to withdraw air and deflate the balloon were unsuccessful given how clogged the G-tube was. Using a traction method, we gently pulled back, however the balloon was likely still inflated and decided not to proceed any further from this point. Using scissors, we did cut proximally to the area of the G-tube being clogged and then replaced the end cap as well as the clamp. There was a good free flow of gastric juices in and out of the syringe and it did flush well. Plan for KUB with Gastrografin to check placement of this G-tube and okay to proceed with tube feeds, meds and free water flushes there afterwards if the G-tube is in satisfactory position. PLAN: 1. Check KUB with Gastrografin. 2. Okay to proceed with meds and G-tube feedings if appropriate positioning and check gastric residuals q.shift, to hold if greater than 200 mL. 3. If this is unsuccessful, then patient will require repeat EGD with PEG tube placement with anesthesia. JOB# [id number]
[2018-06-04] MEDS: Ferrous Sulfate 300 MG/5 ML UDC GT SCH ×2 (15:08→15:10)
--- NOTE | 2018-06-04 16:44 | Consultation ---
DATE OF CONSULTATION: 06/04/2018 REQUESTING PHYSICIAN: Dr. Iván Nelson. REASON FOR CONSULTATION: G-tube malfunction. Thank you for asking me to see this patient in consultation. HISTORY OF PRESENT ILLNESS: This is a 57-year-old male with multiple comorbidities who presents with a G-tube malfunction and was sent to the hospital for G-tube replacement. The patient is currently unable to provide any meaningful history and is rather contractured. We do not have records on when exactly his G-tube was placed; however, this is an old necrotic foul smelling G-tube with the area of clog and inability to use. PAST MEDICAL HISTORY: As noted. FAMILY HISTORY: Noncontributory for GI disease. SOCIAL HISTORY: He lives in a detention. MEDICATIONS: Keppra, Synthroid, Pepcid, Tylenol, and Dulcolax. ALLERGIES: None known. REVIEW OF SYSTEMS: Unable to obtain given the patient's current state. PHYSICAL EXAMINATION: VITAL SIGNS: Temperature of 98.9, pulse of 75, respiratory rate of 18, and blood pressure is 125/81. GENERAL: He is in no acute distress. HEENT: Normocephalic, atraumatic. PERRL positive. LUNGS: Clear bilaterally. No wheezes, rales, or rhonchi. HEART: Regular rate and rhythm, normal S1, S2. ABDOMEN: Soft, nontender, ____ G-tube seen and visualized. EXTREMITIES: Show no lower extremity edema. PSYCHIATRIC: Alert and oriented x3. LABORATORY DATA: White count of 7.1, hemoglobin of 13.7, albumin of 3.9. IMAGING: None relevant. IMPRESSION: This is a 57-year-old male with prior G-tube history, presents with G-tube clog and malfunction. 1. G-tube malfunction. 2. History of seizure disorder. 3. Mental disability. We will attempt to replace a PEG tube at bedside. If it is unable to replace, the patient will likely need a repeat EGD with PEG tube placement at that time. JOB# [id number]
== END 2018-06-04 19:02 | DRG 252 ==
LOC: ER 15:47 → MSI 17:16
PROVIDERS: ADMIT General Practice; ATTEND General Practice
PROC: 0D20XUZ Change Feeding Device in Upper Intestinal Tract, External Approach (ICD-10-PCS; principal; 2018-06-04)
DX: K94.23 Gastrostomy malfunction (principal); F03.90 Unspecified dementia, unspecified severity, without behavioral disturbance, psychotic disturbance, mood disturbance, and anxiety; F20.9 Schizophrenia, unspecified; Y92.89 Other specified places as the place of occurrence of the external cause; E03.9 Hypothyroidism, unspecified; G40.909 Epilepsy, unspecified, not intractable, without status epilepticus; F79 Unspecified intellectual disabilities; E11.9 Type 2 diabetes mellitus without complications; K21.9 Gastro-esophageal reflux disease without esophagitis; M19.90 Unspecified osteoarthritis, unspecified site; Z79.899 Other long term (current) drug therapy; R13.10 Dysphagia, unspecified; Y83.8 Other surgical procedures as the cause of abnormal reaction of the patient, or of later complication, without mention of misadventure at the time of the procedure
CPT/HCPCS: 36415-UA; 74000-TC; 80048-TC; 80053-TC; 84443-TC; 85007-TC; 85025-TC; 85610-TC; 85730-TC; J7042; Z7610